=== PATIENT | male | born 1990 | race Caucasian/White ===

== ENCOUNTER 2022-04-02 18:34 | Emergency (ER) | payer OTHER ==
[~2022-04-02] VITALS: Ht 185.4 cm; Wt 99.8 kg
[2022-04-02 18:39] VITALS: BP 99/44
--- NOTE | 2022-04-02 18:46 | NUR ---
PT AMB TO BED 2.
--- NOTE | 2022-04-02 19:13 | NUR ---
Pt report given to Maggi. Transfer of care at this time.
--- NOTE | 2022-04-02 19:21 | NUR ---
31 YO M BIBS W C/O RIGHT LOWER BACK PAIN THAT RADIATES TO RIGHT FLANK X 2 YEARS, PROGRESSIVELY GETTING WORSE IN THE LAST 2 WEEKS. REPORTS SHARP PAIN 6/10 UPON MOVEMENT. DENIES PAIN DURING URINATION. PMH: DENIES MEDS: DENIES NKDA
--- NOTE | 2022-04-02 20:15 | NUR ---
ER AT BEDSIDE
--- NOTE | 2022-04-02 20:20 | NUR ---
PT TAKEN TO CT
[2022-04-02] MEDS ORDERED: HYDROcodone/APAP 10/325 MG 1 TAB TAB PO ONE (20:25)
--- NOTE | 2022-04-02 20:30 | NUR ---
LAB AT BEDSIDE
[2022-04-02 20:38] LABS: BASOPHILS # (AUTO) 0.1 K/uL (0.00-0.22); EOSINOPHILS # (AUTO) 0.4 K/uL (0-0.4); EOSINOPHILS % (AUTO) 6.3 % (0.0-4.0); HEMATOCRIT 42.8 % (36-52); HEMOGLOBIN 14.4 g/dL (12.0-18.0); LYMPHOCYTES # (AUTO) 1.7 K/uL (2.0-11.5); LYMPHOCYTES % (AUTO) 24.2 % (20.5-51.1); MEAN CORPUSCULAR HEMOGLOBIN 31 pg (27-31); MEAN CORPUSCULAR HGB CONC 34 g/dL (33-37); MEAN CORPUSCULAR VOLUME 92.5 fL (80-94); MONOCYTES # (AUTO) 0.5 K/uL (0.8-1.0); MONOCYTES % (AUTO) 6.5 % (1.7-9.3); NEUTROPHILS # (AUTO) 4.3 K/uL (1.8-7.7); PLATELET COUNT (AUTO) 152 K/uL (140-450); RED BLOOD CELL COUNT(AUTO) 4.63 MIL/uL (4.20-6.10); RED CELL DISTRIBUTION WIDTH 13.5 % (11.6-13.7)
[2022-04-02 21:07] LABS: ALBUMIN 3.6 g/dL (3.4-5.0); CARBON DIOXIDE 28.1 mmol/L (21-32); POTASSIUM 4.1 mmol/L (3.5-5.1); TOTAL BILIRUBIN 0.5 mg/dL (0.0-1.0)
[2022-04-02 22:19] LABS: BILIRUBIN,URINE NEGATIVE (NEGATIVE); BLOOD, URINE NEGATIVE (NEGATIVE); COLOR,URINE YELLOW (YELLOW); LEUKOCYTE ESTERASE ,URINE NEGATIVE (NEGATIVE); NITRITE, URINE NEGATIVE (NEGATIVE); PH,URINE 7.5 (5.0-9.0); UGLUCOSE NEGATIVE (NEGATIVE)
[2022-04-02 22:20] LABS: APPEARANCE,URINE CLOUDY (CLEAR)
--- NOTE | 2022-04-02 22:45 | NUR ---
PT MADE AWARE CT RESULTS ARE PENDING
[2022-04-03 00:14] VITALS: BP 99/44
--- NOTE | 2022-04-03 00:15 | NUR ---
Patient discharged with v/s stable. Written and verbal after care instructions given and explained. Patient verbalized understanding. Ambulatory with steady gait. All questions addressed prior to discharge. Advised to follow up with PMD. VSS, A/OX4, UNLABORED BREATHING, AMBULATORY, AND CALM DEMEANOR.
== END 2022-04-03 00:15 | disposition home or self-care (01) ==
LOC: MED 18:34
DX: R10.31 Right lower quadrant pain (principal)
CPT/HCPCS: 36415; 80053; 81003; 83690; 85025; 99284